=== PATIENT | male | born 1970 | race Caucasian/White ===

== ENCOUNTER 2016-10-30 09:37 | Emergency (ER) | payer OTHER ==
[~2016-10-30] VITALS: Ht 190.5 cm; Wt 136.4 kg
[~2016-10-30 09:37] MED LIST: BACTRIM DS1 TAB PO; CEPHALEXIN500 MG OR; CIPRO500 MG OR; FLAGYL500 MG OR; IBUPROFEN600 MG PO; LORTAB 10 PO; NO; NO MEDS; ZOFRAN ODT4 MG PO
[2016-10-30] MEDS ORDERED: LORTAB 5-325 MG1 TAB PO (09:49)
[2016-10-30 10:04] LABS: HEMATOCRIT 48.1 % (39.0-50.0); IMMATURE GRANULOCYTES 0.3 % (0.0-1.0); MEAN CELL VOLUME 89.4 fL CALC (80.0-100.0); MEAN CORPUSCULAR HGB 29.7 pG CALC (26.0-32.0); MEAN CORPUSCULAR HGB CONC 33.3 g/L CALC (32.0-36.0); NEUT# 7.01 thou/uL (1.82-7.42); RED BLOOD COUNT 5.38 mill/uL (4.70-6.10); RED CELL DISTRI WIDTH 12.4 % (11.5-15.5)
[2016-10-30 10:17] LABS: ALBUMIN 4.5 g/dL (3.2-5.0); ALKALINE PHOSPHATASE 75 u/l (38-126); AMYLASE 40 u/l (30-110); ANION GAP 17 (6-22 (CALC)); BILIRUBIN, TOTAL 0.4 mg/dL (0.0-1.4); BUN 18 mg/dL (9-20); BUN/CREATININE RATIO 17 (12-20 (CALC)); CALCIUM 9.4 mg/dL (8.4-10.2); CARBON DIOXIDE 24 mmol/l (22-30); CHLORIDE 104 mmol/l (95-108); GFR > 60 ML/MIN (>=60 (CALC)); GFR FOR AFR.AMER. > 60 ML/MIN (>=60 (CALC)); GLUCOSE 177 mg/dL (75-110); LIPASE 43 u/l (23-300); POTASSIUM 4.4 mmol/l (3.5-5.1); SGOT/AST 15 u/l (17-59); SGPT/ALT 34 u/l (21-72); SODIUM 141 mmol/l (137-146); TOTAL PROTEIN 7.6 g/dL (6.3-8.2)
[2016-10-30 12:49] LABS: URINE BLOOD DIPSTICK LARGE (NEGATIVE); URINE COLOR YELLOW; URINE GLUCOSE - DIPSTICK 250 mg/dL (NEGATIVE); URINE KETONE TRACE mg/dL (NEGATIVE); URINE LEUK ESTERASE NEGATIVE (NEGATIVE); URINE NITRITE - DIPSTICK NEGATIVE (Negative); URINE PH 5.5 (4.5-8.0); URINE PROTEIN - DIPSTICK 30 mg/dL (NEG-TRACE)
[2016-10-30 12:56] LABS: URINE BILIRUBIN - DIPSTICK SMALL (NEGATIVE); URINE CLARITY CLOUDY
[2016-10-30 13:15] LABS: URINE RBC TNTC RBC/hpf (0-5); URINE SQUAMOUS EPITHELIAL CELL FEW EPI/hpf (0-FEW)
[2016-10-30 14:01] VITALS: BP 161/83
== END 2016-10-30 14:02 | disposition home or self-care (01) | DRG 694 ==
LOC: ED 09:37
PROVIDERS: Emergency Medicine
DX: N20.0 Calculus of kidney (principal); F17.210 Nicotine dependence, cigarettes, uncomplicated; Z85.820 Personal history of malignant melanoma of skin; Z87.442 Personal history of urinary calculi

== ENCOUNTER 2019-07-02 | Emergency (ER) | payer OTHER ==
[~2019-07-02] MED LIST changes: +LORTAB 5-325 MG1 TAB PO
[2019-07-02] MEDS ORDERED: IBUPROFEN600 MG PO (11:42)
[2019-07-02] MEDS ORDERED: CYCLOBENZAPR5 MG PO (11:42)
== END 2019-07-02 11:55 | disposition home or self-care (01) ==
DX: M47.816 Spondylosis without myelopathy or radiculopathy, lumbar region (principal); M48.061 Spinal stenosis, lumbar region without neurogenic claudication; N28.89 Other specified disorders of kidney and ureter; F17.210 Nicotine dependence, cigarettes, uncomplicated

== ENCOUNTER 2020-12-04 08:34 | Observation (INO) | payer OTHER ==
[~2020-12-04] VITALS: Ht 190.5 cm; Wt 126.0 kg
[~2020-12-04 08:34] MED LIST changes: +CYCLOBENZAPR5 MG PO
--- NOTE | 2020-12-04 08:40 | NUR ---
PT ASSISTED TO ROOM VIA W/C
--- NOTE | 2020-12-04 09:35 | NUR ---
IV FLUIDS INFUSING WITHOUT DIFFICULTY. STABLE ON MONITOR. CALL LIGHT WITHIN REACH.
[2020-12-04 09:42] LABS: HEMATOCRIT 46.2 % (39.0-50.0); HEMOGLOBIN 15.5 g/dl (14.0-18.0); IMMATURE GRANULOCYTES 0.5 % (0.0-5.0); MEAN CELL VOLUME 90.1 fL CALC (80.0-100.0); MEAN CORPUSCULAR HGB 30.2 pG CALC (26.0-32.0); MEAN CORPUSCULAR HGB CONC 33.5 g/dL CAL (32.0-36.0); NEUT# 13.98 thou/uL (1.82-7.42); RED BLOOD COUNT 5.13 mill/uL (4.70-6.10); RED CELL DISTRI WIDTH 12.4 % (11.5-15.5)
[2020-12-04 09:53] LABS: ALKALINE PHOSPHATASE 52 u/l (38-126); AMYLASE 49 u/l (30-110); BUN 19 mg/dL (9-20); BUN/CREATININE RATIO 16 (12-20 (CALC)); CARBON DIOXIDE 25 mmol/l (22-30); CHLORIDE 98 mmol/l (95-108); CREATININE 1.1 mg/dL (0.7-1.3); GFR > 60 ML/MIN (>=60 (CALC)); GFR FOR AFR.AMER. > 60 ML/MIN (>=60 (CALC)); LIPASE 16 u/l (23-300); POTASSIUM 3.7 mmol/l (3.5-5.1); SGOT/AST 21 u/l (17-59); TOTAL PROTEIN 7.6 g/dL (6.3-8.2)
[2020-12-04 09:56] LABS: ANION GAP 14 (6-22 (CALC)); BILIRUBIN, TOTAL 0.8 mg/dL (0.0-1.4); SODIUM 133 mmol/l (137-146)
--- NOTE | 2020-12-04 10:41 | NUR ---
PT RESTING. STABLE.NO CHANGE FROM PREVIOUS NOTE.
[2020-12-04 10:50] LABS: ACT PARTIAL THROMBO TIME 25.6 SECONDS (20.0-32.5); INTERNATIONAL NORMALIZED RATIO 1.2 RATIO (0.7-1.3); PROTHROMBIN TIME 12.2 SECONDS (9.0-12.5)
[2020-12-04 10:55] LABS: URINE BILIRUBIN - DIPSTICK NEGATIVE (NEGATIVE); URINE BLOOD DIPSTICK NEGATIVE (NEGATIVE); URINE GLUCOSE - DIPSTICK NEGATIVE (NEGATIVE); URINE KETONE NEGATIVE (NEGATIVE); URINE LEUK ESTERASE NEGATIVE (NEGATIVE); URINE PROTEIN - DIPSTICK TRACE mg/dL (NEG-TRACE); URINE SPECIFIC GRAVITY >=1.030; URINE UROBILINOGEN - DIPSTICK 0.2 E.U./dL (0.2)
[2020-12-04 10:57] LABS: URINE COLOR DK. YELLOW; URINE NITRITE - DIPSTICK NEGATIVE (Negative)
--- NOTE | 2020-12-04 11:43 | NUR ---
PROVIDER AT BEDSIDE FOR UPDATE ON PLAN OF CARE. PT VERBALIZED UNDERSTANDING.
--- NOTE | 2020-12-04 13:15 | NUR ---
PT REPORTS MILD HEADACHE. MD NOTIFIED. STABLE ON MONITOR.
--- NOTE | 2020-12-04 14:18 | NUR ---
REPORT RECEIVED FROM NANCY,RN
--- NOTE | 2020-12-04 14:20 | NUR ---
REPORT GIVEN LEWIS LOCK ON [employer]
--- NOTE | 2020-12-04 14:21 | NUR ---
SPOKE WITH DEE,OR OLIMPIA REGARDING CASE.
--- NOTE | 2020-12-04 14:34 | NUR ---
PT ARRIVED TO MED/SURG ROOM 268 IN STABLE CONDITION VIA WHEELCHAIR ACCOMPANIED BY NEENA CRUZ;PT ASSISTED TO BEDSIDE WITH A STEADY GAIT;PT A&O X3, ORIENTED TO ROOM AND CALL LIGHT SYSTEM;PT REPORTS FEVER AND DIARRHEA SINCE Tuesday11/30/20;PT REPORTS RECTAL PAIN RATING 2/10 ON THE PAIN SCALE, PAIN SCALE AND REPORTING EDUCATED;WT AND VS OBTAINED BY RADHA MCELROY;ASSESSMENT COMPLETED;RESPIRATIONS EVEN AND UNLABORED ON RA,CLEAR LUNG SOUNDS WITH NON-PRODUCTIVE COUGH;ABDOMEN SOFT ON PALPATION AND ACTIVE IN ALL 4 QUADRANTS, LAST BM 12/04/20;STRONG PEDAL PULSES;SKIN INTACT;TELE MONITORING IN PLACE;#20G TO RAC FLUSHED AND PATENT,NS STARTED AT 100ML/HR PER ORDER;NPO DIET REINFORCED AND PT VERBALIZES UNDERSTANDING;PT REMAINS IN DROPLET PRECAUTIONS DUE TO FLU A POSITIVE;PT DENIES ANY ADDITIONAL NEEDS AND IS ENCOURAGED TO CALL FOR ASSISTANCE IF NEEDED;FALL PRECAUTIONS IN PLACE WITH BED IN THE LOWEST POSITION AND CALL LIGHT IN REACH;WILL CONTINUE TO MONITOR
--- NOTE | 2020-12-04 14:37 | NUR ---
SPOKE WITH DEE, OR OLIMPIA. TO SEE PATIENT IS EVENING.IF MD WISHES TO CONTINUE WITH SX PT TO BE PICKED UP AT 10AM BY OR ON 12/15/20.
[2020-12-04 15:00] VITALS: BP 116/53
[2020-12-04 15:41] VITALS: BP 136/70
--- NOTE | 2020-12-04 16:05 | NUR ---
PT RESTING IN SEMI FOWLERS POSITION;RESPIRATIONS EVEN AND UNLABORED ON RA;PT DENIES ANY CURRENT PAIN OR DISCOMFORTS;TELE MONITORING IN PLACE;#20G TO RAC CONTINUES TO INFUSE NS WITH EASE PER ORDER;PT DENIES ANY ADDITIONAL NEEDS AND IS ENCOURAGED TO CALL FOR ASSISTANCE IF NEEDED;CALL LIGHT IN REACH;WILL CONTINUE TO MONITOR
--- NOTE | 2020-12-04 17:43 | NUR ---
AT BEDSIDE DISCUSSING POC WITH PT
--- NOTE | 2020-12-04 18:17 | NUR ---
CONSENT FOR INCISION AND DRAINAGE OF PERIRECTAL ABCESS OBTAINED AT THIS TIME.PROCEDURE DISCUSSED INCLUDING RISKS/BENEFITS. PT VERBALIZES UNDERSTANDING AND DENIES ANY ADDITIONAL QUESTIONS OR NEEDS;WILL CONTINUE TO MONITOR
[2020-12-04 18:35] VITALS: BP 119/56
--- NOTE | 2020-12-04 18:52 | NUR ---
PT CURRENT TEMP 99.8. BLANKETS REMOVED AND PT REQUESTS TYLENOL. PT MEDICATED WITH PRN TYLENOL 650MG PO;WILL CONTINUE TO MONITOR
--- NOTE | 2020-12-04 19:50 | NUR ---
PT IN BED LAYING ON SIDE WITH EYES CLOSED, APPEARED TO AWAKEN WITH MY ENTERING THE ROOM. DENIES ANY PAIN OR DISTRESSES AT THIS TIME. IVF RUNNING/SITE APPEARS HEALTHY AT THIS TIME. POC DISCUSSED, PT STATES HE IS AWARE THAT HE WILL BE NPO AFTER MIDNIGHT. STATES HE IS "JUST TRYING TO SLEEP." URINAL EMPTIED OF 400CC DARK YELLOW CLEAR URINE. DENIES HAVING ANY FURTHER STOOL OUTPUT OF THIS TIME. ENCOURAGED HIM TO CALL USING CALL LIGHT FOR ASSISTANCE OR ANY NEEDS THAT ARISE, VERBALIZED UNDERSTANDING.
--- NOTE | 2020-12-04 22:05 | NUR ---
PT APPEARS TO BE SLEEPING, NO S/O DISTRESS AT THIS TIME. CALL LIGHT AND URINAL AT BEDSIDE.
[2020-12-04 23:24] VITALS: BP 138/63
--- NOTE | 2020-12-04 23:36 | NUR ---
V/S ASSESSED, URINAL EMPTIED OF 300CC OF DARK YELLOW CLEAR URINE. SCANT STOOL SAMPLE COLLECTED AT THIS TIME FOR LABS. ANTIBIOTIC THERAPY ADMINISTERED AT THIS TIME. PT PROMPTLY RETURNED BACK TO SLEEP. HE WAS MADE NPO AT THIS TIME, PT REMINDED OF THIS AND DOOR POSTED.
[2020-12-05] VITALS (11 sets, daily range): BP systolic 91–122; BP diastolic 46–78
--- NOTE | 2020-12-05 01:55 | NUR ---
PT APPEARS TO BE SLEEPING, NO S/O DISTRESS. RESP EVEN AND NON-LABORED.
--- NOTE | 2020-12-05 03:55 | NUR ---
PT CALLED FOR URINAL TO BE EMPTIED. DENIED ANY OTHER NEEDS.
--- NOTE | 2020-12-05 07:00 | NUR ---
RECIEVED REPORT ALONDRA FOSS RN
--- NOTE | 2020-12-05 08:01 | NUR ---
PT RESTING IN SEMI FOWLERS POSITION. PT IS A/O X3. ASSESSMENT COMPLETED. BP 108/66, HR 70, O2 96% ON ROOM AIR.RESPIRATIONS ARE EVEN AND UNLABORED WITH NO DISTRESS NOTED. WHEEZING NOTED IN RUL. BOWEL SOUNDS ACTIVE. HEART RHYTHM NORMAL WITH TELE IN PLACE. SKIN INTACT. #20G RAC INFUSING WITH IVF PER ORDER, SITE REMAINS HEALTHY AND PATENT. PT COMPLAINS OF 3/10 PAIN IN PERIRECTAL. PT DENIES OF ANY ADDITIONAL NEEDS AT THIS TIME. ALL SAFETY PRECAUTIONS ARE IN PLACE WITH CALL LIGHT IN REACH. WILL CONTINUE TO MONITOR.
--- NOTE | 2020-12-05 09:00 | NUR ---
PT TRANSPORTED TO OR IN STABLE CONDITION VIA STRETCHER ACCOMPAINED BY OR STAFF. NONI SENT WITH OR STAFF
--- NOTE | 2020-12-05 11:40 | NUR ---
PT ARRIVED BACK TO [facility] ROOM 268 VIA STRETCHER ACCOMPAINED BY OR STAFF. PT IS A/O X3. RESPIRATIONS ARE EVEN ANFD UNLABORED WITH NO DISTRESS NOTED. #20G RAC INFUSIGN WITH IVF PER ORDER, SITE REMAINS HEALTHY AND PATENT. PT DENIES OF ANY PAINS. DRESSING TO RERECTAL CDI. PT DENIES OF ANY NEEDS AT THIS TIME. PT INSTRUCTED TO CALL FOR ASSISTANCE WHEN NEEDED. WILL CONTINUE TO MONITOR.
--- NOTE | 2020-12-05 15:57 | NUR ---
PT SITTING UP IN CHAIR WATCHING TV. RESPIRATIONS ARE EVEN AND UNLABORED WITH NO DISRTESS NOTED. TELE MONITORING IN PLACE. IVF INFUSING PER ORDER, SITE REMAINS HEALTHY AND PATENT.DRESSING REMAINS CDI. PT STATES HE HAS 3/10 PAIN, REFUSES PAIN MEDICATION. PT DENIES OF ANY NEEDS AT THIS TIME. ALL SAFETY PRECAUTIONS ARE IN PLACE WITH CALL LIGHT IN REACH.WILL CONTINUE TO MONITOR.
--- NOTE | 2020-12-05 19:47 | NUR ---
ENTEREND THE ROOM, PT IS UP WALKING AROUND. HE REPORTS THAT HE FEELS MUCH BETTER THAN THE PREVIOUS NIGHT. NO S/O DISTRESS. HE REPORTS THAT HE HAS MINIMAL PAIN ONLY WITH ACTIVITY. WHEN ASKED TO RATE HIS PAIN HE REPLIED, "NOT ENOUGH, I DON'T NEED ANY MEDICATION FOR IT." I ADVISED HIM TO LET ME KNOW IF IT STARTED TO CLIMB SO WE COULD KEEP THE PAIN UNDER CONTROL, VERBALIZED AGREEMENT. DRESSING TO INCISION HAS MODERATE AMOUNT OF BLOODY DRAINAGE, ABD PAD CHANGED AND KEPT IN PLACE WITH MESH DRESSING. PT ASKING QUESTIONS ABOUT CARE, DISCHARGE, SHOWERING AND STOOL OUTPUT CARE. I EDUCATED MUCH I COULD AT THIS TIME AND ADVISED HIM TO BE SURE AND HAVE THIS DISCUSSION WITH PHYSICIAN FOR DISCHARGE TOMORROW. PT REPORTS THAT HE HAS EATEN LUNCH AND DINNER AND TOLERATED WELL. DENIES NEED OF ANY FURTHER DRINK OR SNACK AT THIS TIME. PT WAS MEDICATED AT THIS TIME AND ASSESSMENT COMPLETED. CALL ESTEFANY W/IN REACH AND PT ADVISED TO CALL ANY NEEDS ARISE.
--- NOTE | 2020-12-05 23:46 | NUR ---
V/S ASSESSED, URINAL EMPTIED OF 300CC OF CLEAR YELLOW URINE. ANTIBIOTIC THERAPY ADMINISTERED AT THIS TIME. PT C/O IV SITE BEING AT THE BEND OF HIS ARM CAUSING IT TO SOUND AT TIMES. I OFFERED TO PLACE A NEW SITE/DENIED. PILLOW PROVIDED PREVIOUSLY FOR ASSISTANCE IN POSITIONING OF ARM. SITE APPEARS PATENT AND HEALTHY. DENIES ANY OTHER NEEDS.
[2020-12-06 03:34] VITALS: BP 88/45
--- NOTE | 2020-12-06 03:55 | NUR ---
WEB MASTER REPORTED BP IS LOW. PT ASYMPTOMATIC AT THIS TIME. PT PLACED IN [place] POSITION AND BP WILL BE REASSESSED. PT LOC, TALKING, DENIES DIZINESS, LIGHT HEADEDNESS.
[2020-12-06 04:14] VITALS: BP 91/50
--- NOTE | 2020-12-06 04:38 | NUR ---
V/S REASSESSED AT 91/50. DRESSING TO PERIRECTAL INCISION IS SOILED W/STOOL AND MODERATELY SATURATED WITH BLOODY DRAINAGE. OUTER GAUZE WAS REMOVED/WOUND IS STILL PACKED, PACKING LEFT IN PLACE. OUTER GAUZE WAS REPLACED AND ABD PAD PLACED OVER AREA AND SECURED WITH MESH UNDERWEAR. PT EDUCATED ON WOUND CARE AT THIS TIME, INTERESTED. IV SITE APPEARS HEALTY, BUT IS VERY POSITIONAL, REFUSED CHANGE AT THIS TIME/SITE SECURED WITH KOBAN TO HELP WITH POSITIONAL ALARMING, IT SEEMS TO HAVE HELPED.
[2020-12-06 04:55] VITALS: BP 94/57
[2020-12-06 06:23] LABS: MEAN CELL VOLUME 91.8 fL CALC (80.0-100.0); MEAN CORPUSCULAR HGB 30.4 pG CALC (26.0-32.0); MEAN CORPUSCULAR HGB CONC 33.1 g/dL CAL (32.0-36.0); RED BLOOD COUNT 4.25 mill/uL (4.70-6.10); RED CELL DISTRI WIDTH 12.4 % (11.5-15.5)
[2020-12-06 06:26] LABS: HEMOGLOBIN 12.9 g/dl (14.0-18.0)
[2020-12-06 06:49] LABS: ANION GAP 10 (6-22 (CALC)); BUN 11 mg/dL (9-20); BUN/CREATININE RATIO 14 (12-20 (CALC)); CALCULATED LDLCHOLESTEROL 49 mg/dL (62-129 (CALC)); CARBON DIOXIDE 25 mmol/l (22-30); CHLORIDE 104 mmol/l (95-108); CREATININE 0.8 mg/dL (0.7-1.3); GFR > 60 ML/MIN (>=60 (CALC)); GFR FOR AFR.AMER. > 60 ML/MIN (>=60 (CALC)); HDL CHOLESTEROL 17 mg/dL (>=40); MAGNESIUM 1.9 mg/dL (1.6-2.3); POTASSIUM 3.8 mmol/l (3.5-5.1); SODIUM 135 mmol/l (137-146); TOTAL CHOLESTEROL 100 mg/dl (0-199); TOTAL TRIGLYCERIDES 171 mg/dl (30-149); VLDL CHOLESTROL 34 mg/dl (8-62 (CALC))
--- NOTE | 2020-12-06 07:00 | NUR ---
RECIEVED REPORT FROM NEENA FOSS
[2020-12-06 07:32] VITALS: BP 113/62
--- NOTE | 2020-12-06 07:32 | NUR ---
PT RESTING IN SEMI FOWLERS POSITION. PT IS A/O X3. ASSESSMENT AND VITALS COMPLETED. BP 113/62, HR 69, O2 95% ON ROOM AIR. RESPIRATIONS ARE EVEN AND UNLABORED WITH NO DISTRESS NOTED. LUNG SOUNDS ARE DIMINSHED IN BASES. HEART RHYTHM IS NORMAL WITH TELE IN PLACE. BOWEL SOUNDS ARE ACTIVE. RADIAL AND PEDAL PULSES ARE STRONG. #20G RAC INFUSING WITH IVF PER ORDER, SITE REMAINS HEALTHY AND PATENT. SKIN INTACT. DRESSING TO PERIRECTAL CDI. PT DENIES OF ANY PAINS OR DISCOMFORTS. ALL SAFETY PRECAUTIONS ARE IN PLACE WITH CALL LIGHT IN REACH. WILL CONTINUE TO MONITOR.
--- NOTE | 2020-12-06 09:28 | NUR ---
DR GUTIERREZ AND MANUEL SIERRA AT BEDSIDE
[2020-12-06 10:55] VITALS: BP 125/74
[2020-12-06] MEDS ORDERED: KEFLEX500 MG PO (11:25)
--- NOTE | 2020-12-06 11:40 | NUR ---
DR DEVRIES CONTACTED. ORDERS TO LEAVE IODOFORM PACKING AND CHANGE ABD PAD BEFORE DC. NEW ABD PLACE. DRESSING REAMINS CDI.
--- NOTE | 2020-12-06 12:04 | NUR ---
PT EDUCATED ON DC INSTRUCTIONS AND NEW MEDICATIONS. PT VERBLAIZED UNDERSTANDING. PT VERBLAIZED UNDERSTANDING. IV REMOEVED WITH CATHATER STILL INTACT. TELE MONITORING REMOVED, ER NOTFIED. WAITING ON TRANSPORTATION. WILL CONTINUE TO MONITOR.
--- NOTE | 2020-12-06 12:11 | NUR ---
Discharge instructions given. Patient verbalizes understanding of same. Discharged in stable condition via Wheelchair to Home with staff. All belongings sent with pt. PT DC HOME IN STABLE CONDITON WITH [facility] WITH ALL BELONINGS AND DC INSTRUCTIONS. DR DEVRIES OFFICE NUMBER GIVEN TO PT ALONG WITH A FEW EXTRA SUPPLIES FOR DRESSING.
== END 2020-12-06 12:11 ==
LOC: ED 08:34 → ED-I 12:11 → ED 12:20 → MS2 12:21
PROVIDERS: ADMIT Hospitalist; ATTEND Hospitalist
DX: K61.1 Rectal abscess (principal); J10.1 Influenza due to other identified influenza virus with other respiratory manifestations; E87.1 Hypo-osmolality and hyponatremia; F17.210 Nicotine dependence, cigarettes, uncomplicated; Z20.822 Contact with and (suspected) exposure to COVID-19; Z87.442 Personal history of urinary calculi; Z85.820 Personal history of malignant melanoma of skin
CPT/HCPCS: C9290; G0378; J0131; J1650; Q9967

== ENCOUNTER 2022-10-19 09:15 | Emergency (ER) | payer OTHER ==
[~2022-10-19] VITALS: Ht 182.9 cm; Wt 122.4 kg
[~2022-10-19 09:15] MED LIST changes: +KEFLEX500 MG PO
[2022-10-19] MEDS ORDERED: NAPROXEN500 MG PO (12:16)
[2022-10-19 12:20] VITALS: BP 147/82
== END 2022-10-19 12:27 | disposition home or self-care (01) ==
LOC: ED 09:15
DX: S63.502A Unspecified sprain of left wrist, initial encounter (principal); M79.642 Pain in left hand; M79.632 Pain in left forearm; F17.210 Nicotine dependence, cigarettes, uncomplicated; W11.XXXA Fall on and from ladder, initial encounter